=== PATIENT | female | born 1970 | race Caucasian/White ===

== ENCOUNTER 2018-01-29 14:17 | Emergency (ER) | payer MEDICARE, MEDICAID ==
[2018-01-29] MEDS ORDERED: Ibuprofen 800 MG TAB ONE (14:46)
--- NOTE | 2018-01-29 18:40 | RAD ---
RIGHT HUMERUS TWO VIEWS: 01/29/18 No prior film was available for comparison. I understand that there is a prior history of arm fractur e. My guess is that this probably involved the greater tubercle. Today's exam shows no acute changes. The humeral shaft appears intact. There is no dislocation. IMPRESSION: No acute bony findings. POS: HOME
== END 2018-01-29 15:05 | disposition home or self-care (01) ==
LOC: BURERS 14:17
DX: G89.29 Other chronic pain (principal); M79.601 Pain in right arm; F17.210 Nicotine dependence, cigarettes, uncomplicated; F31.9 Bipolar disorder, unspecified; Z79.899 Other long term (current) drug therapy

== ENCOUNTER → 2019-03-23 | Emergency (ER) | payer MEDICARE, MEDICAID | LOC: BURERS 15:54 | DX: F10.129 Alcohol abuse with intoxication, unspecified (principal) | CPT/HCPCS: 99283 ==

== ENCOUNTER 2019-11-05 11:24 | Emergency (ER) | payer MEDICARE, MEDICAID ==
[~2019-11-05 11:24] MED LIST: Iopamidol 370 76% 100 ML VIAL ONE
[2019-11-05 12:39] LABS: #Basophils 0.1 thou/uL (0.0-0.2); #Lymphocytes 1.5 thou/uL (1.20-3.40); #Monocytes 0.5 thou/uL (0.11-0.59); #Neutrophils 7.3 thou/uL (1.40-6.50); %Basophils 0.7 % (0.0-1.0); %Eosinophils 0.5 % (0.0-10.0); %Lymphocytes 16.3 % (21.0-51.0); %Monocytes 4.8 % (0.0-10.0); %Neutrophils 77.8 % (42.0-75.0); Hemoglobin 14.6 g/dL (12.0-16.0); Mean Corpuscular HGB CONC 31.8 g/dL (32.0-36.0); Mean Corpuscular Hemoglobin 30.8 pg (27.0-31.0); Mean Platelet Volume 8.8 fL (7.4-10.4); Platelet Count 250 thou/uL (130-400); RBC Distribution Width 12.3 % (11.5-14.5); Red Blood Cell (RBC) Count 4.74 mill/uL (4.20-5.40); White Blood Cell (WBC) Count 9.4 thou/uL (4.8-10.8)
[2019-11-05] MEDS ORDERED: Morphine 4 MG/ML VIAL ONE ×2 (12:45→13:37)
[2019-11-05 12:53] LABS: ALT (SGPT) 17 U/L (8-55); AST (SGOT) 20 U/L (5-34); Albumin 4.2 g/dL (3.5-5.0); Alkaline Phosphatase 90 U/L (40-110); Anion Gap 16 mmol/L (10-20); BUN (Urea Nitrogen) 10 mg/dL (7.0-18.7); Bilirubin, Total 0.2 mg/dL (0.2-1.2); Calc. Creatinine Clearance 0 mL/min (70-130); Calcium 9.4 mg/dL (7.8-10.44); Carbon Dioxide 25 mmol/L (22-29); Chloride 103 mmol/L (98-107); Estimated GFR-MDRD 63; Globulin 2.6 g/dL (2.4-3.5); Glucose 97 mg/dL (70-105); Potassium 3.9 mmol/L (3.5-5.1); Protein, Total 6.8 g/dL (6.0-8.3); Sodium 140 mmol/L (136-145)
--- NOTE | 2019-11-05 15:39 | CT ---
CT ABDOMEN AND PELVIS WITH CONTRAST: 11/05/2019 HISTORY/TECHNIQUE: A spiral CT of the abdomen and pelvis was done after giving IV contrast. Oral contrast was withheld b y request. FINDINGS: ABDOMEN: There is a 1.6 cm, smooth, soft tissue mass in the left lower lobe with a large central calc ification. A calcified granuloma is likely or other similar benign entity. The lungs are otherwise cl ear except for some minor basilar atelectasis. There are no effusions. No fractures are noted in the vicinity. The liver, spleen, pancreas, adrenal glands and kidneys all appear intact with no sign of laceration or hematoma. The liver is mildly generous in size but contains no focal findings internally. The gall bladder is large, measuring 9.5 cm in length, but no stones, wall thickening or inflammatory changes are seen in association with it. The abdominal aorta is normal in caliber. No free air or free fluid is seen. The colon is quite fluid-filled however it is not really dilated n or is there any wall thickening. There are some calcifications seen in the dependent portion of the r ight colon, which I assume may be medication related. PELVIS: CT of the pelvis shows no pelvic masses, free fluid or inflammatory changes. As in the rest o f the colon, the rectosigmoid region is somewhat fluid-filled with reference to the bowel. The bony pelvis appears intact. I see no hip fracture or pelvic fracture. The patient has had a prior L4-L5 fusion with pedicle screws. No lumbar fractures are seen. The superior endplate of L1 is quite uneven but it appears longstanding and probably due to Schmorl's nodes. IMPRESSION: 1. No acute traumatic findings. 2. Large gallbladder without inflammatory changes or stones. 3. Fluid in the colon but no bowel wall thickening or dilation. Small bowel appears normal. 4. No fractures were seen. 5. A 1.6 cm, smooth soft tissue mass in the left lower lobe with central calcification, very likely a calcifying granuloma or similar benign entity. Findings discussed with Dr. Fagan at 1337 hours on 11/05/2019. CODE CR POS: HOME
--- NOTE | 2019-11-05 15:40 | RAD ---
RIGHT ANKLE THREE VIEWS: 11/05/2019 FINDINGS: No acute fracture is seen. Pin tracks are seen from a prior plate and screws that were affixing an ol d injury of the distal fibula. There are no acute bony findings. A tiny calcaneal spur is noted. IMPRESSION: No acute changes. POS: HOME
== END 2019-11-05 14:30 | disposition home or self-care (01) ==
LOC: BURERS 11:24
DX: S70.02XA Contusion of left hip, initial encounter (principal); S30.0XXA Contusion of lower back and pelvis, initial encounter; G47.00 Insomnia, unspecified; F17.210 Nicotine dependence, cigarettes, uncomplicated; F31.9 Bipolar disorder, unspecified; W19.XXXA Unspecified fall, initial encounter
CPT/HCPCS: 74177; 80053; 85025; 96374; J2270; Q9967